=== PATIENT | female | born 2000 | race Caucasian/White ===

== ENCOUNTER → 2023-06-01 12:15 | Outpatient (REF) | payer OTHER, SELFPAY ==
--- NOTE | 2023-06-01 12:28 | ECG_ITS ---
Test Reason : R/O PROLONGATION OF QT Blood Pressure : / mmHG Vent. Rate : 083 BPM Atrial Rate : 083 BPM P-R Int : 132 ms QRS Dur : 084 ms QT Int : 362 ms P-R-T Axes : 067 090 049 degrees QTc Int : 425 ms Normal sinus rhythm with sinus arrhythmia Rightward axis Borderline ECG When compared with ECG of 04-MAY-2014 17:46, No significant change was found Referred By: El Pierce Electronically Signed By:CESAR ROMO MD
== END ==
LOC: HO.CARD 12:15
PROVIDERS: Visit Provider Psychiatry & Neurology Psychiatry
DX: Z79.899 Other long term (current) drug therapy (principal)
CPT/HCPCS: 93005

== ENCOUNTER → 2023-06-01 12:28 | Outpatient (BNV) | payer OTHER, SELFPAY | PROVIDERS: Visit Provider Internal Medicine Cardiovascular Disease | DX: R94.31 Abnormal electrocardiogram [ECG] [EKG] (principal) | CPT/HCPCS: 93010 ==